=== PATIENT | female | born 1960 | race Caucasian/White ===

== ENCOUNTER 2023-10-15 07:06 | Day surgery (SDC) | payer BC, SELFPAY ==
[2023-10-08 10:03] LABS: Hematocrit 43.1 % (37-47); Mean Corp Hgb Conc 32.5 g/dL (32-36); Mean Corpuscular Hgb 28.1 pg (27.0-32.0); Mean Corpuscular Volume 86.4 fL (81-99); Platelet Count 339 K/mm3 (150-450); RBC Distribution Width CV 13.1 % (11.6-14.6); RBC Distribution Width SD 40.2 fl (35.1-43.9); Red Blood Count 4.99 M/mm3 (4.2-5.4); White Blood Count 7.1 K/mm3 (4.4-11.0)
[2023-10-08 10:30] LABS: Anion Gap 5 (5-15); BUN 20 mg/dL (7-18); BUN/Creat Ratio 25.9 RATIO (10-20); Calcium,Total 9.1 mg/dL (8.5-10.1); Chloride 105 mmol/L (98-107); Creatinine, Serum 0.77 mg/dL (0.55-1.02); EST Glomerular Filtration Rate 81 mL/min (>60); Est Glom Filt Rate - Afr Amer 97 mL/min (>60); Glucose 95 mg/dL (74-106); Sodium Level 138 mmol/L (136-145)
[2023-10-08 10:40] LABS: Thyroid Stim Hormone (TSH) 2.67 uIU/mL (0.358-3.74)
[2023-10-15] VITALS (7 sets, daily range): BP systolic 90–157; BP diastolic 45–76; PULSE 68–78; RESP 14–18; TEMP 36.2–36.5; O2SAT 96–100; BMI 24.4
[2023-10-15] MEDS: Lactated Ringers 1,000 ML 15 ML IV (07:39)
--- NOTE | 2023-10-15 08:28 | PCM.OPRPT ---
Report of Operation Date of Procedure: 10/15/23 Pre-Operative Diagnosis: Stress urinary incontinence Post-Operative Diagnosis: Same Surgery/Procedure Performed:: Insertion of mid urethral sling, cystoscopy Surgeon: Yaneth Reilly Type of Anesthesia: General Specimen's removed: none Estimated Blood Loss (mL): 5cc Description of Procedure: The patient is a 62-year-old female who is struggling with stress incontinence. She was evaluated with urodynamics in the office and has decided to proceed with mid urethral sling insertion for treatment. Informed consent was obtained. The patient was taken to the operating room and placed on the operating room table. Anesthesia monitored the head, neck, airway, IV access and vital signs throughout the case. Once anesthesia was appropriately administered, she was placed into exaggerated dorsolithotomy position and was prepped and draped in usual sterile fashion. A Rm catheter was inserted to straight drain and the bladder was emptied. The mid urethra was isolated and injected in the submucosa with 1% lidocaine with epinephrine for hydrostatic dissection and hemostatic control. A midline vertical incision was then made approximately 2 cm in length over the mid urethra. Dissection was performed bilaterally on either side of the urethra with care being taken to avoid entry into the urethra or into the vaginal mucosa. At this point, the trocars provided with the sling kit were used for passage of the tines into the obturator complexes bilaterally. Using the tensioning suture, the sling was placed flat against the urethra and the suture was cut. The midline incision was closed using running interlocking 2-0 Vicryl. At this time the Rm catheter was removed and a cystoscope was inserted through the urethra under direct visualization into the urinary bladder. There is no evidence of foreign body, hemorrhage, injury or mass identified. The cystoscope was then removed and the procedure was ended. She was awakened and taken to the recovery room in good condition. There were no complications during this procedure. Grafts/Implants Used: Altis mid urethral sling Complications None Admit VTE Documentation VTE Present on Admission: Yes VTE Mechan Device Prophylaxis: SCD's VTE Pharm Prophylaxis ordered?: Yes
--- NOTE | 2023-10-15 08:31 | DCINST_ITS ---
Discharge Instructions Diet Discharge Diet: No restrictions Activity Discharge Activity: May Drive (When not taking pain medication) and May Shower May resume sexual activity in: 4 weeks Additional Activity Instructions:: No strenuous exercise, heavy lifting over 5 pounds, swimming, tub bathing or hot tubs, no sexual activity Dressing / Incision Call your doctor if your incision/area has: Continuous Slow Oozing, Sudden Increased Bleeding, Increased Pain/ Swelling and Foul Smelling Discharge Call your doctor if you observe: Fever of 101 or Higher, Inability to urinate and Inability to have a bowel movement Follow Up Care Please Follow Up With: Yaneth Reilly MD When: The office will call to schedule follow-up appointment Test Results: Test results from this visit will be discussed in further detail at your follow- up appointment, if applicable. Discharge Plan Admission Attending Provider: Yaneth Reilly Primary Care Provider: ENDY BLACKBURN Consulting Providers: Boy Carlos Discharge Orders/Prescriptions Prescriptions: New oxycodone-acetaminophen [Percocet] 5-325 mg tablet 1 tab PO Q8H PRN (Reason: pain) 3 Days Qty: 10 0RF cephalexin [cephalexin] 500 mg capsule 500 mg PO Q12 3 Days Qty: 6 0RF Continued losartan 100 mg tablet 50 mg PO BID hydrocodone-acetaminophen 5-325 mg tablet 1 tab PO TID PRN PRN (Reason: pain) levothyroxine [Synthroid] 100 mcg tablet 100 mcg PO DAILY ezetimibe 10 mg tablet 10 mg PO QHS diltiazem HCl 120 mg capsule,extended release 24hr 120 mg PO QHS diclofenac sodium 1 % gel 2 g TOPICAL DAILY PRN PRN (Reason: pain) Patient Comments: PLEASE SEE ATTACHED FOR DETAILED DIRECTIONS cilostazol 50 mg tablet 50 mg PO BID clopidogrel 75 mg tablet 75 mg PO DAILY Hair, Skin and Nails (biotin) 10,000 mcg tablet,chewable 10,000 mcg PO DAILY Referrals / Follow Up: Dora Hicks MD [Non-Staff] - Disposition Disposition (needs filled in before D/C Order can be placed): Home, Self Care
[2023-10-15] MEDS: Cefazolin 2 GM in 0.9% Normal Saline (100mL Bag) 100 ML IV (08:41)
[2023-10-15] MEDS: Lidocaine 1% /Epi 1:100 (20ml) 20 ML Vial (09:10)
== END 2023-10-15 12:24 | disposition home or self-care (01) ==
LOC: SDC 07:08 → AC 07:10
PROVIDERS: Anesthesiology; PCP Family Medicine; Referring Provider Urology; Visit Provider Urology
PROC: 0TJB8ZZ Inspection of Bladder, Via Natural or Artificial Opening Endoscopic (ICD-10-PCS; CPT 57288; principal; 2023-10-15 08:35)
DX: N39.3 Stress incontinence (female) (male) (principal); I10 Essential (primary) hypertension; J45.909 Unspecified asthma, uncomplicated; I25.10 Atherosclerotic heart disease of native coronary artery without angina pectoris; N32.81 Overactive bladder; Z79.899 Other long term (current) drug therapy; N36.42 Intrinsic sphincter deficiency (ISD)
CPT/HCPCS: 51992; 00860; 36415; 80048; 84443; 85027; J7120; J2405